=== PATIENT | female | born 1970 | race Caucasian/White ===

== ENCOUNTER 2021-11-11 07:54 | Day surgery (SDC) | payer OTHER ==
[~2021-11-11] VITALS: Ht 152.4 cm; Wt 122.7 kg
[~2021-11-11 07:54] MED LIST: SODIUM CHLORIDE 0.9% 1,000 ML ONE; SODIUM CHLORIDE 0.9% 500 ML IV ONE
[2021-11-11] MEDS ORDERED: PROPOFOL 1% 20 ML VIAL IVP ONE (07:55)
[2021-11-11] MEDS ORDERED: LIDOCAINE/PF 2% 5 ML VIAL IM ONE (07:55)
[2021-11-11 08:29] LABS: COVID AG,FIA SOURCE NASAL SWAB
[2021-11-11] MEDS ORDERED: SODIUM CHLORIDE 0.9% 1,000 ML IV ONE (10:30)
[2021-11-11] MEDS ORDERED: LISI-894 PO (10:39)
[2021-11-11] MEDS ORDERED: HYDR25TA2 PO (10:39)
== END 2021-11-11 11:00 | disposition home or self-care (01) ==
LOC: SURGERY 07:54
PROVIDERS: ATTEND Internal Medicine Gastroenterology
DX: K62.5 Hemorrhage of anus and rectum (principal); K63.5 Polyp of colon; K57.30 Diverticulosis of large intestine without perforation or abscess without bleeding; I10 Essential (primary) hypertension; K64.0 First degree hemorrhoids; E66.9 Obesity, unspecified; Z98.890 Other specified postprocedural states; Z79.899 Other long term (current) drug therapy
CPT/HCPCS: 45380; 87426; 88305; C1769; J2704; J3490; J7030; C9803